=== PATIENT | female | born 1960 | race Hispanic/Latino ===

== ENCOUNTER 2017-08-24 11:10 | Emergency (ER) | payer SELFPAY ==
[~2017-08-24] VITALS: Ht 154.9 cm; Wt 57.6 kg
[2017-08-24] MEDS ORDERED: SILVER SULFADIAZINE 50GM CREAM TOP STA (11:35)
[2017-08-24] MEDS ORDERED: HYDROCODONE/APAP 10MG-325MG TAB PO ONE (11:45)
[2017-08-24] MEDS ORDERED: TETANUS/DIPHTHERIA TOX ADULT 0.5 ML SYR IM ONE (12:00)
== END 2017-08-24 13:24 | disposition home or self-care (01) ==
LOC: ER 11:10
DX: T23.201A Burn of second degree of right hand, unspecified site, initial encounter (principal); X10.2XXA Contact with fats and cooking oils, initial encounter; Y93.G3 Activity, cooking and baking; Y92.000 Kitchen of unspecified non-institutional (private) residence as the place of occurrence of the external cause
CPT/HCPCS: 90714; 99283